=== PATIENT | female | born 1960 | race Caucasian/White ===

== ENCOUNTER → 2017-01-24 | Outpatient (CLI) | payer OTHER ==
[~2017-01-24] MED LIST: LEVO75 PO; LEVO88TA4 PO; LORA-192 PO; OMEG-53 PO; SULF1TAB42 PO; TRAZ-144 PO
[2017-01-24 14:19] LABS: EOSINOPHILS % (AUTO) 1.4 % (1.0-6.0); HEMOGLOBIN 13.9 g/dL (12.0-16.0); LYMPHOCYTES # (AUTO) 3.2 K/uL (1.0-4.8); LYMPHOCYTES % (AUTO) 47.4 % (22.0-44.0); MEAN CORPUSCULAR HEMOGLOBIN 30.1 pg (26.0-34.0); MEAN CORPUSCULAR VOLUME 89 fL (80-100); MONOCYTES # (AUTO) 0.5 K/uL (0.1-1.0); MONOCYTES % (AUTO) 7.5 % (2.0-9.0); NEUTROPHILS # (AUTO) 2.9 K/uL (1.8-7.7); NEUTROPHILS % (AUTO) 42.7 % (40.0-70.0); PLATELET COUNT (AUTO) 278 K/uL (150-450); RED BLOOD CELL COUNT(AUTO) 4.63 MIL/uL (4.00-5.20); RED CELL DISTRIBUTION WIDTH 12.7 % (11.5-14.5); WHITE BLOOD COUNT (AUTO) 6.8 K/uL (4.5-11.0)
[2017-01-24 14:31] LABS: APPEARANCE,URINE CLEAR (CLEAR); GLUCOSE, URINE (UA) NEGATIVE (NEGATIVE); KETONES,URINE NEGATIVE (NEGATIVE); LEUKOCYTE ESTERASE ,URINE NEGATIVE (NEGATIVE); OCCULT BLOOD,URINE SMALL (NEGATIVE); PH,URINE 6.5 (5.0-8.0); PROTEIN,URINE NEGATIVE (NEGATIVE)
[2017-01-24 14:36] LABS: ADD UA MICROSCOPIC YES
[2017-01-24 14:41] LABS: ALANINE AMINOTRANSFERASE 53 U/L (12-78); ANION GAP 8 mmol/L (8-16); ASPARTATE AMINOTRANSFERASE 41 U/L (15-37); BILIRUBIN,TOTAL 0.5 mg/dL (0.1-1.0); CALCIUM, TOTAL 8.9 mg/dL (8.8-10.5); CARBON DIOXIDE 27 mmol/L (22-29); CHLORIDE 98 mmol/L (98-107); CHOL/HDL RATIO 5.7 (3.9-5.7); CREATININE 0.68 mg/dL (0.60-1.30); GLOMERULAR FILTR. RATE CALC > 60 mL/min (>60); POTASSIUM 3.7 mmol/L (3.5-5.1); SODIUM SERUM 133 mmol/L (136-145); THYROID STIMULATING HORMONE 1.25 uIU/mL (0.36-3.74); TOTAL PROTEIN, SERUM 8.5 g/dL (6.4-8.2); UREA NITROGEN, BLOOD 11 mg/dL (7-18)
[2017-01-24 14:48] LABS: RBC,URINE 0-2 /HPF (0-2); SQUAMOUS EPITHELIAL CELL,UR Few /LPF (None Seen); WBC,URINE 0-2 /HPF (0-5)
== END | disposition home or self-care (01) ==
LOC: LABPV 01-23 12:12
PROVIDERS: ATTEND Nurse Practitioner Family
DX: E03.9 Hypothyroidism, unspecified (principal); E78.2 Mixed hyperlipidemia; E55.9 Vitamin D deficiency, unspecified
CPT/HCPCS: 82306; 83036; 84439; 84443

== ENCOUNTER 2017-10-22 10:47 | Day surgery (SDC) | payer OTHER ==
[~2017-10-22] VITALS: Ht 152.4 cm; Wt 56.8 kg
[~2017-10-22 10:47] MED LIST changes: +DICLOFENAC SODIUM 0.1% 2.5 ML OPHTHALMIC SOLUTION OD ONE; +DICLOFENAC SODIUM 0.1% 2.5 ML OPHTHALMIC SOLUTION ONE; -LORA-192 PO; +MELATONIN PO; +MOXIFLOXACIN HCL 0.5% 3 ML OPHTHALMIC SOLUTION OD ONE; +MOXIFLOXACIN HCL 0.5% 3 ML OPHTHALMIC SOLUTION ONE; +NATURAL TEARS OU; +PHENYLEPHRINE HCL 2.5% 2 ML OPHTHALMIC SOLUTION ONE; +RINGERS SOLUTION,LACTATED 500 ML IV ONE; -SULF1TAB42 PO; -TRAZ-144 PO; +TROPICAMIDE 1% 2 ML OPHTHALMIC SOLUTION ONE
[2017-10-22] MEDS ORDERED: TETRACAINE HCL VISCOUS 0.5% 5 ML OPHTHALMIC SOLUTION OS ONE (10:48)
[2017-10-22] MEDS ORDERED: DEXAMETHASONE SOD PHOS 4 MG/ML VIAL IVP ONE (10:48)
[2017-10-22] MEDS ORDERED: MIDAZOLAM HCL 2 MG/2 ML VIAL IVP ONE (10:48)
[2017-10-22] MEDS ORDERED: LIDOCAINE HCL/PF 1% 2 ML VIAL INJ ONE (10:48)
[2017-10-22] MEDS ORDERED: BALANCED SALT 15 ML OPHTHALMIC IRRIG.SOLN OS ONE (10:48)
[2017-10-22] MEDS ORDERED: FentaNYL CITRATE-PF 100 MCG/2 ML VIAL IVP ONE (10:48)
[2017-10-22] MEDS ORDERED: HYALURONATE SOD/CHONDROITIN SOD 0.5 ML VIAL IO ONE (10:48)
[2017-10-22] MEDS ORDERED: HYALURONATE SODIUM 12 MG/ML 0.8 ML SYRINGE IO ONE (10:48)
[2017-10-22] MEDS ORDERED: MitoMYcin 0.2 MG/VIAL KIT FOR OPHTHALMIC USE OD ONE (11:45)
== END 2017-10-22 13:00 | disposition home or self-care (01) ==
LOC: SURGERY 10:47
PROVIDERS: ATTEND Specialist
DX: H11.001 Unspecified pterygium of right eye (principal); E03.9 Hypothyroidism, unspecified; E78.00 Pure hypercholesterolemia, unspecified; Z72.89 Other problems related to lifestyle; Z98.890 Other specified postprocedural states; Z79.899 Other long term (current) drug therapy
CPT/HCPCS: 65426; 88304; 93005; C1768; J1100; J2250; J3010; J3490 ×2; J7120

== ENCOUNTER → 2018-01-09 | Outpatient (CLI) | payer OTHER ==
[~2018-01-09] MED LIST changes: -DICLOFENAC SODIUM 0.1% 2.5 ML OPHTHALMIC SOLUTION OD ONE; -DICLOFENAC SODIUM 0.1% 2.5 ML OPHTHALMIC SOLUTION ONE; -MOXIFLOXACIN HCL 0.5% 3 ML OPHTHALMIC SOLUTION OD ONE; -MOXIFLOXACIN HCL 0.5% 3 ML OPHTHALMIC SOLUTION ONE; -PHENYLEPHRINE HCL 2.5% 2 ML OPHTHALMIC SOLUTION ONE; -RINGERS SOLUTION,LACTATED 500 ML IV ONE; -TROPICAMIDE 1% 2 ML OPHTHALMIC SOLUTION ONE
[2018-01-09 12:42] LABS: BASOPHILS % (AUTO) 1.3 % (0.0-2.0); EOSINOPHILS % (AUTO) 1.8 % (1.0-6.0); HEMATOCRIT 40.2 % (36-46); HEMOGLOBIN 14.4 g/dL (12.0-16.0); LYMPHOCYTES # (AUTO) 3.3 K/uL (1.0-4.8); LYMPHOCYTES % (AUTO) 45.8 % (22.0-44.0); MEAN CORPUSCULAR HEMOGLOBIN 30.7 pg (26.0-34.0); MEAN CORPUSCULAR HGB CONC 35.8 G/dL (31.0-37.0); MEAN CORPUSCULAR VOLUME 86 fL (80-100); MONOCYTES # (AUTO) 0.5 K/uL (0.1-1.0); MONOCYTES % (AUTO) 7.5 % (2.0-9.0); NEUTROPHILS # (AUTO) 3.2 K/uL (1.8-7.7); NEUTROPHILS % (AUTO) 43.6 % (40.0-70.0); PLATELET COUNT (AUTO) 278 K/uL (150-450); RED BLOOD CELL COUNT(AUTO) 4.69 MIL/uL (4.00-5.20); RED CELL DISTRIBUTION WIDTH 12.3 % (11.5-14.5)
[2018-01-09 12:52] LABS: HEMOGLOBIN A1C 6.3 % (4.5-6.2)
[2018-01-09 13:00] LABS: ALANINE AMINOTRANSFERASE 40 U/L (12-78); ALKALINE PHOSPHATASE 92 U/L (46-116); ANION GAP 10 mmol/L (8-16); ASPARTATE AMINOTRANSFERASE 32 U/L (15-37); BILIRUBIN,TOTAL 0.5 mg/dL (0.1-1.0); CALCIUM, TOTAL 8.7 mg/dL (8.8-10.5); CARBON DIOXIDE 25 mmol/L (22-29); CHLORIDE 98 mmol/L (98-107); CHOL/HDL RATIO 6.1 (3.9-5.7); CHOLESTEROL 249 mg/dL (131-200); CREATININE 0.65 mg/dL (0.60-1.30); GLOMERULAR FILTR. RATE CALC > 60 mL/min (>60); GLUCOSE,RANDOM 91 mg/dL (70-110); HDL CHOLESTEROL 41 mg/dL (40-60); LDL CHOL (CALC.) 158 mg/dL (0-130); POTASSIUM 3.9 mmol/L (3.5-5.1); SODIUM SERUM 133 mmol/L (136-145); THYROID STIMULATING HORMONE 2.42 uIU/mL (0.36-3.74); TOTAL PROTEIN, SERUM 8.8 g/dL (6.4-8.2); TRIGLYCERIDES 250 mg/dL (15-150); UREA NITROGEN, BLOOD 13 mg/dL (7-18)
[2018-01-09 13:28] LABS: APPEARANCE,URINE CLEAR (CLEAR)
[2018-01-09 13:29] LABS: PH,URINE 5.5 (5.0-8.0); PROTEIN,URINE NEGATIVE (NEGATIVE)
[2018-01-09 13:34] LABS: BILIRUBIN,URINE NEGATIVE (NEGATIVE); GLUCOSE, URINE (UA) NEGATIVE (NEGATIVE); KETONES,URINE NEGATIVE (NEGATIVE); LEUKOCYTE ESTERASE ,URINE NEGATIVE (NEGATIVE); NITRATE,URINE NEGATIVE (NEGATIVE); OCCULT BLOOD,URINE SMALL (NEGATIVE); UROBILINOGEN,URINE 0.2 mg/dL (<=1.0)
[2018-01-09 13:36] LABS: BACTERIA,URINE Rare /HPF (None Seen); RBC,URINE 0-2 /HPF (0-2); WBC,URINE 0-2 /HPF (0-5)
[2018-01-09 13:39] LABS: HYALINE CASTS, URINE 0-2 /LPF (None Seen); SQUAMOUS EPITHELIAL CELL,UR Rare /LPF (None Seen)
== END | disposition home or self-care (01) ==
LOC: LABPV 11:59
PROVIDERS: ATTEND Internal Medicine
DX: Z13.89 Encounter for screening for other disorder (principal); E78.2 Mixed hyperlipidemia; E03.9 Hypothyroidism, unspecified; E55.9 Vitamin D deficiency, unspecified
CPT/HCPCS: 83036; 84443

== ENCOUNTER → 2018-05-28 | Outpatient (CLI) | payer OTHER ==
[2018-05-28 11:42] LABS: APPEARANCE,URINE CLEAR (CLEAR); BILIRUBIN,URINE NEGATIVE (NEGATIVE); GLUCOSE, URINE (UA) NEGATIVE (NEGATIVE); KETONES,URINE NEGATIVE (NEGATIVE); LEUKOCYTE ESTERASE ,URINE NEGATIVE (NEGATIVE); NITRATE,URINE NEGATIVE (NEGATIVE); OCCULT BLOOD,URINE SMALL (NEGATIVE); PH,URINE 6.5 (5.0-8.0); PROTEIN,URINE NEGATIVE (NEGATIVE); UROBILINOGEN,URINE 0.2 mg/dL (<=1.0)
[2018-05-28 11:47] LABS: BASOPHILS % (AUTO) 1.4 % (0.0-2.0); EOSINOPHILS % (AUTO) 1.5 % (1.0-6.0); HEMATOCRIT 41.3 % (36-46); HEMOGLOBIN 14.3 g/dL (12.0-16.0); LYMPHOCYTES # (AUTO) 2.8 K/uL (1.0-4.8); LYMPHOCYTES % (AUTO) 48.5 % (22.0-44.0); MEAN CORPUSCULAR HEMOGLOBIN 30.3 pg (26.0-34.0); MEAN CORPUSCULAR HGB CONC 34.7 G/dL (31.0-37.0); MEAN CORPUSCULAR VOLUME 87 fL (80-100); MONOCYTES # (AUTO) 0.4 K/uL (0.1-1.0); MONOCYTES % (AUTO) 7.2 % (2.0-9.0); NEUTROPHILS # (AUTO) 2.4 K/uL (1.8-7.7); NEUTROPHILS % (AUTO) 41.4 % (40.0-70.0); PLATELET COUNT (AUTO) 280 K/uL (150-450); RED BLOOD CELL COUNT(AUTO) 4.74 MIL/uL (4.00-5.20); RED CELL DISTRIBUTION WIDTH 12.6 % (11.5-14.5)
[2018-05-28 11:58] LABS: BACTERIA,URINE None Seen /HPF (None Seen); WBC,URINE None Seen /HPF (0-5)
[2018-05-28 12:06] LABS: ALANINE AMINOTRANSFERASE 49 U/L (12-78); ALBUMIN 3.9 g/dL (3.4-5.0); ALKALINE PHOSPHATASE 99 U/L (46-116); ANION GAP 7 mmol/L (8-16); ASPARTATE AMINOTRANSFERASE 34 U/L (15-37); BILIRUBIN,TOTAL 0.3 mg/dL (0.1-1.0); CALCIUM, TOTAL 9.1 mg/dL (8.8-10.5); CARBON DIOXIDE 28 mmol/L (22-29); CHLORIDE 103 mmol/L (98-107); CHOL/HDL RATIO 5.5 (3.9-5.7); CHOLESTEROL 215 mg/dL (131-200); CREATININE 0.75 mg/dL (0.60-1.30); GLOMERULAR FILTR. RATE CALC > 60 mL/min (>60); GLUCOSE,RANDOM 100 mg/dL (70-110); HDL CHOLESTEROL 39 mg/dL (40-60); LDL CHOL (CALC.) 134 mg/dL (0-130); POTASSIUM 4.3 mmol/L (3.5-5.1); SODIUM SERUM 138 mmol/L (136-145); THYROID STIMULATING HORMONE 2.35 uIU/mL (0.36-3.74); TOTAL PROTEIN, SERUM 8.7 g/dL (6.4-8.2); TRIGLYCERIDES 209 mg/dL (15-150); UREA NITROGEN, BLOOD 9 mg/dL (7-18)
== END | disposition home or self-care (01) ==
LOC: LABPV 09:56
PROVIDERS: ATTEND Internal Medicine
DX: E03.9 Hypothyroidism, unspecified (principal); E78.2 Mixed hyperlipidemia; E55.9 Vitamin D deficiency, unspecified
CPT/HCPCS: 82306; 82652; 84439; 84443

== ENCOUNTER → 2018-09-18 | Outpatient (CLI) | payer OTHER ==
[2018-09-18 11:30] LABS: APPEARANCE,URINE CLEAR (CLEAR); BILIRUBIN,URINE NEGATIVE (NEGATIVE); GLUCOSE, URINE (UA) NEGATIVE (NEGATIVE); KETONES,URINE NEGATIVE (NEGATIVE); LEUKOCYTE ESTERASE ,URINE NEGATIVE (NEGATIVE); NITRATE,URINE NEGATIVE (NEGATIVE); OCCULT BLOOD,URINE SMALL (NEGATIVE); PH,URINE 7.5 (5.0-8.0); PROTEIN,URINE NEGATIVE (NEGATIVE); UROBILINOGEN,URINE 0.2 mg/dL (<=1.0)
[2018-09-18 11:40] LABS: BACTERIA,URINE Rare /HPF (None Seen); SQUAMOUS EPITHELIAL CELL,UR Rare /LPF (None Seen); WBC,URINE None Seen /HPF (0-5)
[2018-09-18 12:28] LABS: BASOPHILS % (AUTO) 1.5 % (0.0-2.0); EOSINOPHILS % (AUTO) 1.4 % (1.0-6.0); HEMATOCRIT 42.8 % (36-46); HEMOGLOBIN 14.4 g/dL (12.0-16.0); LYMPHOCYTES # (AUTO) 2.3 K/uL (1.0-4.8); LYMPHOCYTES % (AUTO) 48.5 % (22.0-44.0); MEAN CORPUSCULAR HEMOGLOBIN 29.3 pg (26.0-34.0); MEAN CORPUSCULAR HGB CONC 33.7 G/dL (31.0-37.0); MEAN CORPUSCULAR VOLUME 87 fL (80-100); MONOCYTES # (AUTO) 0.4 K/uL (0.1-1.0); MONOCYTES % (AUTO) 7.9 % (2.0-9.0); NEUTROPHILS % (AUTO) 40.7 % (40.0-70.0); PLATELET COUNT (AUTO) 295 K/uL (150-450); RED BLOOD CELL COUNT(AUTO) 4.91 MIL/uL (4.00-5.20); RED CELL DISTRIBUTION WIDTH 12.5 % (11.5-14.5)
[2018-09-18 13:11] LABS: ALANINE AMINOTRANSFERASE 38 U/L (12-78); ALKALINE PHOSPHATASE 99 U/L (46-116); ANION GAP 10 mmol/L (8-16); ASPARTATE AMINOTRANSFERASE 29 U/L (15-37); BILIRUBIN,TOTAL 0.4 mg/dL (0.1-1.0); CALCIUM, TOTAL 9.6 mg/dL (8.8-10.5); CARBON DIOXIDE 26 mmol/L (22-29); CHLORIDE 102 mmol/L (98-107); CREATININE 0.45 mg/dL (0.60-1.30); GLOMERULAR FILTR. RATE CALC > 60 mL/min (>60); GLUCOSE,RANDOM 93 mg/dL (70-110); POTASSIUM 3.6 mmol/L (3.5-5.1); SODIUM SERUM 138 mmol/L (136-145); UREA NITROGEN, BLOOD 13 mg/dL (7-18)
[2018-09-18 13:12] LABS: ALBUMIN 3.9 g/dL (3.4-5.0); C-REACTIVE PROTEIN QUANT 0.31 mg/dL (0.00-0.30); CHOL/HDL RATIO 5.1 (3.9-5.7); CHOLESTEROL 225 mg/dL (131-200); CREATINE KINASE, TOTAL ONLY 109 U/L (26-192); FREE T4 (FREE THYROXINE) 1.11 ng/dL (0.76-1.46); HDL CHOLESTEROL 44 mg/dL (40-60); LDL CHOL (CALC.) 138 mg/dL (0-130); THYROID STIMULATING HORMONE 2.08 uIU/mL (0.36-3.74); TOTAL PROTEIN, SERUM 8.9 g/dL (6.4-8.2); TRIGLYCERIDES 213 mg/dL (15-150)
[2018-09-18 13:48] LABS: ERYTHROCYTE SEDIMENTATION RATE 52 MM/HR (0-20)
[2018-09-18 17:20] LABS: RAPID PLASMA REAGIN NONREACTIVE (NONREACTIVE)
== END | disposition home or self-care (01) ==
LOC: LABPV 10:44
PROVIDERS: ATTEND Physician Assistant
DX: Z13.89 Encounter for screening for other disorder (principal); M13.0 Polyarthritis, unspecified; E78.00 Pure hypercholesterolemia, unspecified; E03.9 Hypothyroidism, unspecified
CPT/HCPCS: 82306; 84439; 84443; 85651; 86038; 86140; 86200; 86430; 86592

== ENCOUNTER → 2019-02-03 | Outpatient (CLI) | payer OTHER ==
[2019-02-03 12:32] LABS: CREATININE,URINE RANDOM 21.6 mg/dL (30.0-125.0)
[2019-02-03 12:37] LABS: PROTEIN,URINE RANDOM < 6 mg/dL (0-11.9)
== END | disposition home or self-care (01) ==
LOC: LABMN 10:42
PROVIDERS: ATTEND Internal Medicine Rheumatology
DX: M35.00 Sjogren syndrome, unspecified (principal); R94.5 Abnormal results of liver function studies
CPT/HCPCS: 80074; 82570; 84156; 86038; 86200; 86225; 86235; 86256; 86430

== ENCOUNTER → 2019-04-01 | Outpatient (CLI) | payer OTHER ==
[2019-04-01 12:43] LABS: CREATININE 0.64 mg/dL (0.60-1.30); GLOMERULAR FILTR. RATE CALC > 60 mL/min (>60)
[2019-04-01 12:57] LABS: UREA NITROGEN, BLOOD 9 mg/dL (7-18)
== END | disposition home or self-care (01) ==
LOC: LABMN 12:09
DX: R31.29 Other microscopic hematuria (principal); M35.00 Sjogren syndrome, unspecified; E78.2 Mixed hyperlipidemia; E55.9 Vitamin D deficiency, unspecified; E03.9 Hypothyroidism, unspecified
CPT/HCPCS: 82565; 84520

== ENCOUNTER 2019-06-29 13:43 | Emergency (ER) | payer OTHER ==
[~2019-06-29] VITALS: Ht 152.4 cm; Wt 54.5 kg
[2019-06-29] MEDS ORDERED: PILOC5 PO (13:48)
[2019-06-29 16:02] LABS: APPEARANCE,URINE CLEAR (CLEAR); BILIRUBIN,URINE NEGATIVE (NEGATIVE); GLUCOSE, URINE (UA) NEGATIVE (NEGATIVE); KETONES,URINE NEGATIVE (NEGATIVE); LEUKOCYTE ESTERASE ,URINE NEGATIVE (NEGATIVE); NITRATE,URINE NEGATIVE (NEGATIVE); OCCULT BLOOD,URINE MODERATE (NEGATIVE); PH,URINE 7.5 (5.0-8.0); PROTEIN,URINE NEGATIVE (NEGATIVE); UROBILINOGEN,URINE 0.2 mg/dL (<=1.0)
[2019-06-29 16:08] LABS: BACTERIA,URINE None Seen /HPF (None Seen); RBC,URINE 0-2 /HPF (0-2); SQUAMOUS EPITHELIAL CELL,UR Rare /LPF (None Seen); WBC,URINE 0-2 /HPF (0-5)
[2019-06-29 16:31] LABS: BASOPHILS % (AUTO) 1.8 % (0.0-2.0); EOSINOPHILS % (AUTO) 1.5 % (1.0-6.0); HEMATOCRIT 40.9 % (36-46); LYMPHOCYTES # (AUTO) 2.4 K/uL (1.0-4.8); LYMPHOCYTES % (AUTO) 51.1 % (22.0-44.0); MEAN CORPUSCULAR HEMOGLOBIN 29.8 pg (26.0-34.0); MEAN CORPUSCULAR HGB CONC 34.2 G/dL (31.0-37.0); MEAN CORPUSCULAR VOLUME 87 fL (80-100); MONOCYTES # (AUTO) 0.4 K/uL (0.1-1.0); MONOCYTES % (AUTO) 9.2 % (2.0-9.0); NEUTROPHILS # (AUTO) 1.7 K/uL (1.8-7.7); NEUTROPHILS % (AUTO) 36.4 % (40.0-70.0); PLATELET COUNT (AUTO) 319 K/uL (150-450); RED CELL DISTRIBUTION WIDTH 12.9 % (11.5-14.5)
[2019-06-29 16:51] LABS: ANION GAP 8 mmol/L (8-16); CALCIUM, TOTAL 9.1 mg/dL (8.8-10.5); CARBON DIOXIDE 28 mmol/L (22-29); CHLORIDE 103 mmol/L (98-107); CREATININE 0.63 mg/dL (0.60-1.30); GLOMERULAR FILTR. RATE CALC > 60 mL/min (>60); GLUCOSE,RANDOM 97 mg/dL (70-110); POTASSIUM 3.5 mmol/L (3.5-5.1); SODIUM SERUM 139 mmol/L (136-145); UREA NITROGEN, BLOOD 10 mg/dL (7-18)
[2019-06-29 16:57] LABS: ALANINE AMINOTRANSFERASE 22 U/L (12-78); ALKALINE PHOSPHATASE 97 U/L (46-116); ASPARTATE AMINOTRANSFERASE 22 U/L (15-37); BILIRUBIN,TOTAL 0.3 mg/dL (0.1-1.0); TOTAL PROTEIN, SERUM 8.8 g/dL (6.4-8.2)
[2019-06-29 17:00] LABS: INR 0.9 (0.9-1.1); PROTHROMBIN TIME 9.6 SEC (9.4-11.6)
[2019-06-29] MEDS ORDERED: SODIUM CHLORIDE 0.9% 1,000 ML IV ONE (17:00)
[2019-06-29] MEDS ORDERED: LORazepam 1 MG TABLET PO ONE (17:30)
[2019-06-29] MEDS ORDERED: HYPR15DR23 OU (18:26)
[2019-06-29 18:55] VITALS: BP 159/102
== END 2019-06-29 19:05 | disposition home or self-care (01) ==
LOC: EMS 13:51
DX: F41.1 Generalized anxiety disorder (principal); F43.0 Acute stress reaction; R51 Headache; R42 Dizziness and giddiness
CPT/HCPCS: 36415; 70450; 80053; 81001; 82962; 84484; 85025; 85610; 85730; 93005; 96360; 99285; J7030

== ENCOUNTER → 2020-01-28 | Outpatient (CLI) | payer OTHER ==
[~2020-01-28] MED LIST changes: +HYPR15DR23 OU; -LEVO88TA4 PO; -NATURAL TEARS OU; +PILOC5 PO
[2020-01-28 13:38] LABS: BASOPHILS % (AUTO) 1.5 % (0.0-2.0); EOSINOPHILS % (AUTO) 1.8 % (1.0-6.0); HEMATOCRIT 42.9 % (36-46); HEMOGLOBIN 14.3 g/dL (12.0-16.0); LYMPHOCYTES # (AUTO) 2.4 K/uL (1.0-4.8); LYMPHOCYTES % (AUTO) 45.3 % (22.0-44.0); MEAN CORPUSCULAR HEMOGLOBIN 29.3 pg (26.0-34.0); MEAN CORPUSCULAR HGB CONC 33.4 G/dL (31.0-37.0); MEAN CORPUSCULAR VOLUME 88 fL (80-100); MONOCYTES # (AUTO) 0.5 K/uL (0.1-1.0); MONOCYTES % (AUTO) 8.9 % (2.0-9.0); NEUTROPHILS # (AUTO) 2.3 K/uL (1.8-7.7); NEUTROPHILS % (AUTO) 42.5 % (40.0-70.0); PLATELET COUNT (AUTO) 285 K/uL (150-450); RED BLOOD CELL COUNT(AUTO) 4.89 MIL/uL (4.00-5.20); RED CELL DISTRIBUTION WIDTH 12.8 % (11.5-14.5)
[2020-01-28 14:01] LABS: ALANINE AMINOTRANSFERASE 27 U/L (12-78); ALBUMIN 4.5 g/dL (3.4-5.0); ALKALINE PHOSPHATASE 93 U/L (46-116); ANION GAP 11 mmol/L (8-16); ASPARTATE AMINOTRANSFERASE 24 U/L (15-37); BILIRUBIN,TOTAL 0.6 mg/dL (0.1-1.0); CALCIUM, TOTAL 9.1 mg/dL (8.8-10.5); CARBON DIOXIDE 26 mmol/L (22-29); CHLORIDE 100 mmol/L (98-107); CHOL/HDL RATIO 4.3 (3.9-5.7); CHOLESTEROL 251 mg/dL (131-200); CREATININE 0.67 mg/dL (0.60-1.30); GLOMERULAR FILTR. RATE CALC > 60 mL/min (>60); GLUCOSE,RANDOM 92 mg/dL (70-110); HDL CHOLESTEROL 59 mg/dL (40-60); LDL CHOL (CALC.) 159 mg/dL (0-130); POTASSIUM 3.5 mmol/L (3.5-5.1); SODIUM SERUM 137 mmol/L (136-145); THYROID STIMULATING HORMONE 1.19 uIU/mL (0.36-3.74); TOTAL PROTEIN, SERUM 9.4 g/dL (6.4-8.2); TRIGLYCERIDES 165 mg/dL (15-150); UREA NITROGEN, BLOOD 12 mg/dL (7-18)
[2020-01-28 14:44] LABS: ERYTHROCYTE SEDIMENTATION RATE 40 MM/HR (0-20)
[2020-01-28 14:47] LABS: APPEARANCE,URINE CLEAR (CLEAR); BILIRUBIN,URINE NEGATIVE (NEGATIVE); GLUCOSE, URINE (UA) NEGATIVE (NEGATIVE); KETONES,URINE NEGATIVE (NEGATIVE); LEUKOCYTE ESTERASE ,URINE TRACE (NEGATIVE); NITRATE,URINE NEGATIVE (NEGATIVE); PH,URINE 6.5 (5.0-8.0); PROTEIN,URINE NEGATIVE (NEGATIVE); UROBILINOGEN,URINE 0.2 mg/dL (<=1.0)
[2020-01-28 14:52] LABS: OCCULT BLOOD,URINE TRACE (NEGATIVE)
[2020-01-28 14:53] LABS: BACTERIA,URINE None Seen /HPF (None Seen); RBC,URINE 0-2 /HPF (0-2); SQUAMOUS EPITHELIAL CELL,UR Rare /LPF (None Seen); WBC,URINE 0-2 /HPF (0-5)
== END | disposition home or self-care (01) ==
LOC: LABMN 12:37
PROVIDERS: ATTEND Physician Assistant
DX: E03.9 Hypothyroidism, unspecified (principal); N02.9 Recurrent and persistent hematuria with unspecified morphologic changes; E78.2 Mixed hyperlipidemia; M85.851 Other specified disorders of bone density and structure, right thigh
CPT/HCPCS: 82306; 84443; 85651; 86038; 86225

== ENCOUNTER → 2020-03-24 | Outpatient (CLI) | payer OTHER | END | disposition home or self-care (01) | LOC: LABPV 11:50 | PROVIDERS: ATTEND Internal Medicine Rheumatology | DX: M35.00 Sjogren syndrome, unspecified (principal) | CPT/HCPCS: 86235 ==

== ENCOUNTER 2020-11-09 19:26 | Emergency (ER) | payer OTHER ==
[~2020-11-09] VITALS: Ht 165.1 cm; Wt 59.1 kg
[2020-11-09] MEDS ORDERED: LEVO88TA4 PO (19:39)
[2020-11-09] MEDS ORDERED: KETOROLAC TROMETHAMINE 60 MG/2 ML VIAL IM ONE (20:30)
[2020-11-09 21:09] VITALS: BP 157/82
== END 2020-11-09 21:10 | disposition home or self-care (01) ==
LOC: EMS 19:28
DX: S39.012A Strain of muscle, fascia and tendon of lower back, initial encounter (principal); E78.00 Pure hypercholesterolemia, unspecified; X58.XXXA Exposure to other specified factors, initial encounter; Y93.89 Activity, other specified; Y92.89 Other specified places as the place of occurrence of the external cause; Y99.8 Other external cause status
CPT/HCPCS: 96372; 99283; J1885

== ENCOUNTER → 2020-11-30 | Outpatient (CLI) | payer OTHER ==
[~2020-11-30] MED LIST changes: -HYPR15DR23 OU; +LEVO88TA4 PO; -MELATONIN PO
[2020-11-30 13:11] LABS: EOSINOPHILS % (AUTO) 1.8 % (1.0-6.0); HEMOGLOBIN 13.9 g/dL (12.0-16.0); LYMPHOCYTES # (AUTO) 2.6 K/uL (1.0-4.8); LYMPHOCYTES % (AUTO) 47.1 % (22.0-44.0); MEAN CORPUSCULAR HEMOGLOBIN 29.4 pg (26.0-34.0); MEAN CORPUSCULAR HGB CONC 33.9 G/dL (31.0-37.0); MEAN CORPUSCULAR VOLUME 87 fL (80-100); MONOCYTES # (AUTO) 0.5 K/uL (0.1-1.0); MONOCYTES % (AUTO) 8.7 % (2.0-9.0); NEUTROPHILS # (AUTO) 2.3 K/uL (1.8-7.7); NEUTROPHILS % (AUTO) 41.4 % (40.0-70.0); PLATELET COUNT (AUTO) 263 K/uL (150-450); RED BLOOD CELL COUNT(AUTO) 4.73 MIL/uL (4.00-5.20); RED CELL DISTRIBUTION WIDTH 13.1 % (11.5-14.5)
[2020-11-30 13:14] LABS: APPEARANCE,URINE CLEAR (CLEAR); BILIRUBIN,URINE NEGATIVE (NEGATIVE); GLUCOSE, URINE (UA) NEGATIVE (NEGATIVE); KETONES,URINE NEGATIVE (NEGATIVE); LEUKOCYTE ESTERASE ,URINE NEGATIVE (NEGATIVE); NITRATE,URINE NEGATIVE (NEGATIVE); OCCULT BLOOD,URINE SMALL (NEGATIVE); PH,URINE 6.5 (5.0-8.0); PROTEIN,URINE NEGATIVE (NEGATIVE); UROBILINOGEN,URINE 0.2 mg/dL (<=1.0)
[2020-11-30 13:19] LABS: HEMOGLOBIN A1C 5.9 % (3.8-5.6)
[2020-11-30 13:38] LABS: ALANINE AMINOTRANSFERASE 31 U/L (12-78); ALKALINE PHOSPHATASE 93 U/L (46-116); ANION GAP 2 mmol/L (8-16); ASPARTATE AMINOTRANSFERASE 24 U/L (15-37); BILIRUBIN,TOTAL 0.5 mg/dL (0.1-1.0); CALCIUM, TOTAL 9.1 mg/dL (8.8-10.5); CARBON DIOXIDE 27 mmol/L (22-29); CHLORIDE 102 mmol/L (98-107); CHOL/HDL RATIO 4.8 (3.9-5.7); CHOLESTEROL 245 mg/dL (131-200); CREATININE 0.55 mg/dL (0.60-1.30); GLOMERULAR FILTR. RATE CALC > 60 mL/min (>60); GLUCOSE,RANDOM 90 mg/dL (70-110); HDL CHOLESTEROL 51 mg/dL (40-60); LDL CHOL (CALC.) 160 mg/dL (0-130); POTASSIUM 4.2 mmol/L (3.5-5.1); SODIUM SERUM 131 mmol/L (136-145); THYROID STIMULATING HORMONE 2.02 uIU/mL (0.36-3.74); TOTAL PROTEIN, SERUM 8.8 g/dL (6.4-8.2); TRIGLYCERIDES 168 mg/dL (15-150); UREA NITROGEN, BLOOD 12 mg/dL (7-18)
[2020-11-30 14:08] LABS: BACTERIA,URINE None Seen /HPF (None Seen); RBC,URINE 0-2 /HPF (0-2); SQUAMOUS EPITHELIAL CELL,UR None Seen /LPF (None Seen); WBC,URINE 0-2 /HPF (0-5)
== END | disposition home or self-care (01) ==
LOC: LABMN 12:12
PROVIDERS: ATTEND Physician Assistant
DX: Z00.00 Encounter for general adult medical examination without abnormal findings (principal); E03.9 Hypothyroidism, unspecified; E78.2 Mixed hyperlipidemia
CPT/HCPCS: 82043; 82570; 83036; 84443

== ENCOUNTER → 2021-06-01 | Outpatient (CLI) | payer OTHER | END | disposition home or self-care (01) | LOC: RADMN 12:31 | PROVIDERS: ATTEND Internal Medicine | DX: M47.812 Spondylosis without myelopathy or radiculopathy, cervical region (principal); M47.813 Spondylosis without myelopathy or radiculopathy, cervicothoracic region; M48.02 Spinal stenosis, cervical region; M25.78 Osteophyte, vertebrae; M43.12 Spondylolisthesis, cervical region | CPT/HCPCS: 72040; 72141 ==

== ENCOUNTER → 2021-09-27 | Outpatient (CLI) | payer OTHER ==
[2021-09-27 10:58] LABS: BASOPHILS % (AUTO) 1.3 % (0.0-2.0); EOSINOPHILS % (AUTO) 1.1 % (1.0-6.0); HEMATOCRIT 39.5 % (36-46); HEMOGLOBIN 13.4 g/dL (12.0-16.0); LYMPHOCYTES # (AUTO) 2.1 K/uL (1.0-4.8); LYMPHOCYTES % (AUTO) 36.4 % (22.0-44.0); MEAN CORPUSCULAR HEMOGLOBIN 29.2 pg (26.0-34.0); MEAN CORPUSCULAR HGB CONC 33.8 G/dL (31.0-37.0); MEAN CORPUSCULAR VOLUME 86 fL (80-100); MONOCYTES # (AUTO) 0.4 K/uL (0.1-1.0); MONOCYTES % (AUTO) 6.2 % (2.0-9.0); NEUTROPHILS # (AUTO) 3.1 K/uL (1.8-7.7); PLATELET COUNT (AUTO) 314 K/uL (150-450); RED BLOOD CELL COUNT(AUTO) 4.57 MIL/uL (4.00-5.20); RED CELL DISTRIBUTION WIDTH 12.7 % (11.5-14.5)
[2021-09-27 11:22] LABS: HEMOGLOBIN A1C 5.9 % (3.8-5.6)
[2021-09-27 11:27] LABS: ALANINE AMINOTRANSFERASE 26 U/L (12-78); ALKALINE PHOSPHATASE 90 U/L (46-116); ANION GAP 8 mmol/L (8-16); ASPARTATE AMINOTRANSFERASE 22 U/L (15-37); BILIRUBIN,TOTAL 0.3 mg/dL (0.1-1.0); CARBON DIOXIDE 28 mmol/L (22-29); CHLORIDE 104 mmol/L (98-107); CHOLESTEROL 203 mg/dL (131-200); CREATININE 0.55 mg/dL (0.60-1.30); GLUCOSE,RANDOM 104 mg/dL (70-110); HDL CHOLESTEROL 51 mg/dL (40-60); LDL CHOL (CALC.) 131 mg/dL (0-130); POTASSIUM 3.9 mmol/L (3.5-5.1); SODIUM SERUM 140 mmol/L (136-145); THYROID STIMULATING HORMONE 1.75 uIU/mL (0.36-3.74); TOTAL PROTEIN, SERUM 8.9 g/dL (6.4-8.2); TRIGLYCERIDES 104 mg/dL (15-150); UREA NITROGEN, BLOOD 17 mg/dL (7-18)
[2021-09-27 11:28] LABS: GLOMERULAR FILTR. RATE CALC > 60 mL/min (>60)
[2021-09-27 11:53] LABS: APPEARANCE,URINE CLEAR (CLEAR); BILIRUBIN,URINE NEGATIVE (NEGATIVE); GLUCOSE, URINE (UA) NEGATIVE (NEGATIVE); KETONES,URINE NEGATIVE (NEGATIVE); NITRATE,URINE NEGATIVE (NEGATIVE); PROTEIN,URINE NEGATIVE (NEGATIVE); UROBILINOGEN,URINE 0.2 mg/dL (<=1.0)
[2021-09-27 12:36] LABS: LEUKOCYTE ESTERASE ,URINE SMALL (NEGATIVE); OCCULT BLOOD,URINE SMALL (NEGATIVE)
[2021-09-27 12:37] LABS: BACTERIA,URINE Few /HPF (None Seen); SQUAMOUS EPITHELIAL CELL,UR Few /LPF (None Seen)
== END | disposition home or self-care (01) ==
LOC: LABMN 10:33
PROVIDERS: ATTEND Internal Medicine
DX: E78.2 Mixed hyperlipidemia (principal); E03.9 Hypothyroidism, unspecified; R73.03 Prediabetes; Z00.00 Encounter for general adult medical examination without abnormal findings
CPT/HCPCS: 80053; 80061; 81001; 82043; 82570; 83036; 84443; 85025; 86038; 86430; 36415-L1; 36415-TC

== ENCOUNTER → 2022-01-31 | Outpatient (CLI) | payer OTHER | END | disposition home or self-care (01) | LOC: RADMN 16:08 | PROVIDERS: ATTEND Internal Medicine | DX: M16.12 Unilateral primary osteoarthritis, left hip (principal); M85.88 Other specified disorders of bone density and structure, other site; M19.071 Primary osteoarthritis, right ankle and foot; M77.31 Calcaneal spur, right foot; M25.552 Pain in left hip; M79.671 Pain in right foot | CPT/HCPCS: 73503 ==

== ENCOUNTER → 2022-04-26 | Outpatient (CLI) | payer OTHER ==
[2022-04-26 11:42] LABS: BASOPHILS % (AUTO) 1.1 % (0.0-2.0); HEMATOCRIT 39.4 % (36-46); HEMOGLOBIN 13.2 g/dL (12.0-16.0); LYMPHOCYTES # (AUTO) 2.2 K/uL (1.0-4.8); LYMPHOCYTES % (AUTO) 38.6 % (22.0-44.0); MEAN CORPUSCULAR HEMOGLOBIN 29.2 pg (26.0-34.0); MEAN CORPUSCULAR HGB CONC 33.4 G/dL (31.0-37.0); MEAN CORPUSCULAR VOLUME 87 fL (80-100); MONOCYTES # (AUTO) 0.4 K/uL (0.1-1.0); MONOCYTES % (AUTO) 7.8 % (2.0-9.0); NEUTROPHILS # (AUTO) 2.9 K/uL (1.8-7.7); NEUTROPHILS % (AUTO) 51.5 % (40.0-70.0); PLATELET COUNT (AUTO) 260 K/uL (150-450); RED BLOOD CELL COUNT(AUTO) 4.52 MIL/uL (4.00-5.20)
[2022-04-26 12:41] LABS: ALANINE AMINOTRANSFERASE 34 U/L (12-78); ALBUMIN 3.8 g/dL (3.4-5.0); ALKALINE PHOSPHATASE 82 U/L (46-116); ANION GAP 9 mmol/L (8-16); ASPARTATE AMINOTRANSFERASE 29 U/L (15-37); BILIRUBIN,TOTAL 0.5 mg/dL (0.1-1.0); CARBON DIOXIDE 26 mmol/L (22-29); CHLORIDE 99 mmol/L (98-107); CHOL/HDL RATIO 3.2 (3.9-5.7); CHOLESTEROL 159 mg/dL (131-200); CREATININE 0.55 mg/dL (0.60-1.30); GLOMERULAR FILTR. RATE CALC > 60 mL/min (>60); GLUCOSE,RANDOM 86 mg/dL (70-110); HDL CHOLESTEROL 50 mg/dL (40-60); LDL CHOL (CALC.) 82 mg/dL (0-130); POTASSIUM 3.7 mmol/L (3.5-5.1); SODIUM SERUM 134 mmol/L (136-145); THYROID STIMULATING HORMONE 1.19 uIU/mL (0.36-3.74); TRIGLYCERIDES 136 mg/dL (15-150); UREA NITROGEN, BLOOD 13 mg/dL (7-18)
[2022-04-26 14:33] LABS: APPEARANCE,URINE CLEAR (CLEAR); BILIRUBIN,URINE NEGATIVE (NEGATIVE); GLUCOSE, URINE (UA) NEGATIVE (NEGATIVE); KETONES,URINE NEGATIVE (NEGATIVE); LEUKOCYTE ESTERASE ,URINE NEGATIVE (NEGATIVE); NITRATE,URINE NEGATIVE (NEGATIVE); OCCULT BLOOD,URINE SMALL (NEGATIVE); PROTEIN,URINE NEGATIVE (NEGATIVE); SPECIFIC GRAVITIY, URINE 1.002 (1.003-1.030); UROBILINOGEN,URINE <=1.0 mg/dL (<=1.0)
[2022-04-26 14:43] LABS: BACTERIA,URINE None Seen /HPF (None Seen); RBC,URINE 0-2 /HPF (0-2); SQUAMOUS EPITHELIAL CELL,UR Few /LPF (None Seen); WBC,URINE None Seen /HPF (0-5)
== END | disposition home or self-care (01) ==
LOC: LABMN 10:40
PROVIDERS: ATTEND Internal Medicine
DX: R73.03 Prediabetes (principal); E78.2 Mixed hyperlipidemia; E03.9 Hypothyroidism, unspecified
CPT/HCPCS: 80053; 80061; 81001; 82043; 82570; 83036; 84443; 85025

== ENCOUNTER → 2022-08-14 | Outpatient (CLI) | payer OTHER | END | disposition home or self-care (01) | LOC: RADMN 12:38 | PROVIDERS: ATTEND Orthopaedic Surgery | DX: S73.192A Other sprain of left hip, initial encounter (principal); M25.852 Other specified joint disorders, left hip; M51.36 Other intervertebral disc degeneration, lumbar region; M47.817 Spondylosis without myelopathy or radiculopathy, lumbosacral region; M43.27 Fusion of spine, lumbosacral region; M25.78 Osteophyte, vertebrae; M16.0 Bilateral primary osteoarthritis of hip; M53.3 Sacrococcygeal disorders, not elsewhere classified; K59.00 Constipation, unspecified; M54.50 Low back pain, unspecified; X58.XXXA Exposure to other specified factors, initial encounter; Y93.89 Activity, other specified; Y92.89 Other specified places as the place of occurrence of the external cause; Y99.8 Other external cause status | CPT/HCPCS: 72100; 72202; 73721 ==

== ENCOUNTER → 2022-11-01 | Outpatient (CLI) | payer OTHER ==
[2022-11-01 13:09] LABS: BASOPHILS % (AUTO) 1.1 % (0.0-2.0); EOSINOPHILS % (AUTO) 1.4 % (1.0-6.0); HEMOGLOBIN 13.4 g/dL (12.0-16.0); LYMPHOCYTES # (AUTO) 2.4 K/uL (1.0-4.8); LYMPHOCYTES % (AUTO) 41.8 % (22.0-44.0); MEAN CORPUSCULAR HEMOGLOBIN 29.4 pg (26.0-34.0); MEAN CORPUSCULAR HGB CONC 33.5 G/dL (31.0-37.0); MEAN CORPUSCULAR VOLUME 88 fL (80-100); MONOCYTES # (AUTO) 0.5 K/uL (0.1-1.0); MONOCYTES % (AUTO) 9.1 % (2.0-9.0); NEUTROPHILS # (AUTO) 2.7 K/uL (1.8-7.7); NEUTROPHILS % (AUTO) 46.6 % (40.0-70.0); PLATELET COUNT (AUTO) 297 K/uL (150-450); RED BLOOD CELL COUNT(AUTO) 4.56 MIL/uL (4.00-5.20); RED CELL DISTRIBUTION WIDTH 13.1 % (11.5-14.5)
[2022-11-01 13:19] LABS: HEMOGLOBIN A1C 5.9 % (3.8-5.6)
[2022-11-01 13:45] LABS: ALANINE AMINOTRANSFERASE 29 U/L (12-78); ALBUMIN 4.1 g/dL (3.4-5.0); ALKALINE PHOSPHATASE 103 U/L (46-116); ANION GAP 9 mmol/L (8-16); ASPARTATE AMINOTRANSFERASE 30 U/L (15-37); BILIRUBIN,TOTAL 0.4 mg/dL (0.1-1.0); CALCIUM, TOTAL 9.1 mg/dL (8.8-10.5); CARBON DIOXIDE 28 mmol/L (22-29); CHLORIDE 101 mmol/L (98-107); CHOL/HDL RATIO 3.4 (3.9-5.7); CHOLESTEROL 167 mg/dL (131-200); CREATININE 0.59 mg/dL (0.60-1.30); GLOMERULAR FILTR. RATE CALC > 60 mL/min (>60); GLUCOSE,RANDOM 90 mg/dL (70-110); HDL CHOLESTEROL 49 mg/dL (40-60); LDL CHOL (CALC.) 79 mg/dL (0-130); POTASSIUM 4.2 mmol/L (3.5-5.1); SODIUM SERUM 138 mmol/L (136-145); THYROID STIMULATING HORMONE 3.53 uIU/mL (0.36-3.74); TOTAL PROTEIN, SERUM 8.6 g/dL (6.4-8.2); TRIGLYCERIDES 193 mg/dL (15-150); UREA NITROGEN, BLOOD 7 mg/dL (7-18)
[2022-11-01 14:13] LABS: APPEARANCE,URINE CLEAR (CLEAR); BILIRUBIN,URINE NEGATIVE (NEGATIVE); GLUCOSE, URINE (UA) NEGATIVE (NEGATIVE); KETONES,URINE NEGATIVE (NEGATIVE); LEUKOCYTE ESTERASE ,URINE NEGATIVE (NEGATIVE); NITRATE,URINE NEGATIVE (NEGATIVE); OCCULT BLOOD,URINE SMALL (NEGATIVE); PROTEIN,URINE NEGATIVE (NEGATIVE); SPECIFIC GRAVITIY, URINE 1.002 (1.003-1.030); UROBILINOGEN,URINE <=1.0 mg/dL (<=1.0)
[2022-11-01 14:49] LABS: BACTERIA,URINE None Seen /HPF (None Seen); RBC,URINE None Seen /HPF (0-2); SQUAMOUS EPITHELIAL CELL,UR Few /LPF (None Seen); WBC,URINE None Seen /HPF (0-5)
== END | disposition home or self-care (01) ==
LOC: LABMN 12:38
PROVIDERS: ATTEND Internal Medicine
DX: E78.2 Mixed hyperlipidemia (principal); R73.03 Prediabetes; E03.9 Hypothyroidism, unspecified
CPT/HCPCS: 80053; 80061; 81001; 82043; 82570; 83036; 84443; 85025

== ENCOUNTER → 2023-03-07 | Outpatient (CLI) | payer OTHER ==
[2023-03-07 07:51] LABS: BASOPHILS % (AUTO) 1.1 % (0.0-2.0); EOSINOPHILS % (AUTO) 2.1 % (1.0-6.0); HEMATOCRIT 39.7 % (36-46); MEAN CORPUSCULAR HEMOGLOBIN 28.8 pg (26.0-34.0); MEAN CORPUSCULAR HGB CONC 32.7 G/dL (31.0-37.0); MEAN CORPUSCULAR VOLUME 88 fL (80-100); MONOCYTES # (AUTO) 0.5 K/uL (0.1-1.0); MONOCYTES % (AUTO) 10.2 % (2.0-9.0); NEUTROPHILS # (AUTO) 2.6 K/uL (1.8-7.7); NEUTROPHILS % (AUTO) 48.6 % (40.0-70.0); PLATELET COUNT (AUTO) 288 K/uL (150-450); RED BLOOD CELL COUNT(AUTO) 4.51 MIL/uL (4.00-5.20); RED CELL DISTRIBUTION WIDTH 13.4 % (11.5-14.5)
[2023-03-07 07:52] LABS: APPEARANCE,URINE CLEAR (CLEAR); BILIRUBIN,URINE NEGATIVE (NEGATIVE); GLUCOSE, URINE (UA) NEGATIVE (NEGATIVE); KETONES,URINE NEGATIVE (NEGATIVE); LEUKOCYTE ESTERASE ,URINE NEGATIVE (NEGATIVE); NITRATE,URINE NEGATIVE (NEGATIVE); OCCULT BLOOD,URINE SMALL (NEGATIVE); PROTEIN,URINE NEGATIVE (NEGATIVE); SPECIFIC GRAVITIY, URINE 1.003 (1.003-1.030); UROBILINOGEN,URINE <=1.0 mg/dL (<=1.0)
[2023-03-07 07:58] LABS: HEMOGLOBIN A1C 5.7 % (3.8-5.6)
[2023-03-07 08:04] LABS: CREATININE,URINE RANDOM < 5.0 mg/dL (30.0-125.0)
[2023-03-07 08:09] LABS: BACTERIA,URINE None Seen /HPF (None Seen); RBC,URINE 0-2 /HPF (0-2); WBC,URINE None Seen /HPF (0-5)
[2023-03-07 08:10] LABS: SQUAMOUS EPITHELIAL CELL,UR Rare /LPF (None Seen)
[2023-03-07 08:13] LABS: ALANINE AMINOTRANSFERASE 24 U/L (12-78); ALBUMIN 3.9 g/dL (3.4-5.0); ALKALINE PHOSPHATASE 94 U/L (46-116); ANION GAP 11 mmol/L (8-16); ASPARTATE AMINOTRANSFERASE 25 U/L (15-37); BILIRUBIN,TOTAL 0.5 mg/dL (0.1-1.0); CALCIUM, TOTAL 9.2 mg/dL (8.8-10.5); CARBON DIOXIDE 25 mmol/L (22-29); CHLORIDE 100 mmol/L (98-107); CHOL/HDL RATIO 3.4 (3.9-5.7); CHOLESTEROL 168 mg/dL (131-200); CREATININE 0.55 mg/dL (0.60-1.30); GLOMERULAR FILTR. RATE CALC > 60 mL/min (>60); GLUCOSE,RANDOM 100 mg/dL (70-110); HDL CHOLESTEROL 50 mg/dL (40-60); LDL CHOL (CALC.) 95 mg/dL (0-130); POTASSIUM 3.9 mmol/L (3.5-5.1); SODIUM SERUM 136 mmol/L (136-145); THYROID STIMULATING HORMONE 6.03 uIU/mL (0.36-3.74); TOTAL PROTEIN, SERUM 8.3 g/dL (6.4-8.2); TRIGLYCERIDES 117 mg/dL (15-150)
== END | disposition home or self-care (01) ==
LOC: LABMN 07:16
PROVIDERS: ATTEND Internal Medicine
DX: Z12.11 Encounter for screening for malignant neoplasm of colon (principal); R73.03 Prediabetes; E78.2 Mixed hyperlipidemia; E03.9 Hypothyroidism, unspecified
CPT/HCPCS: 80053; 80061; 81001; 82043; 82570; 83036; 84443; 85025

== ENCOUNTER → 2023-03-18 | Outpatient (CLI) | payer OTHER ==
[~2023-03-18] MED LIST changes: +IOHEXOL 350 MG/ML 100 ML VIAL ONE; +SODIUM CHLORIDE 0.9% 100 ML ONE
== END | disposition home or self-care (01) ==
LOC: RADMN 09:43
PROVIDERS: ATTEND Urology
DX: K76.0 Fatty (change of) liver, not elsewhere classified (principal); R31.21 Asymptomatic microscopic hematuria; R16.0 Hepatomegaly, not elsewhere classified; I87.8 Other specified disorders of veins
CPT/HCPCS: 74178; Q9967; J7050

== ENCOUNTER → 2023-03-21 | Outpatient (CLI) | payer OTHER ==
[~2023-03-21] MED LIST changes: -IOHEXOL 350 MG/ML 100 ML VIAL ONE; -SODIUM CHLORIDE 0.9% 100 ML ONE
== END | disposition home or self-care (01) ==
LOC: LABMN 11:43
PROVIDERS: ATTEND Internal Medicine
DX: Z12.11 Encounter for screening for malignant neoplasm of colon (principal)
CPT/HCPCS: 82274

== ENCOUNTER → 2023-04-08 | Outpatient (CLI) | payer OTHER ==
[2023-04-08 13:57] LABS: FREE T4 (FREE THYROXINE) 1.09 ng/dL (0.76-1.46); THYROID STIMULATING HORMONE 2.52 uIU/mL (0.36-3.74)
== END | disposition home or self-care (01) ==
LOC: LABMN 12:45
PROVIDERS: ATTEND Internal Medicine
DX: E03.9 Hypothyroidism, unspecified (principal)
CPT/HCPCS: 84439; 84443; 84481

== ENCOUNTER → 2023-05-21 | Outpatient (CLI) | payer OTHER ==
[2023-05-21 14:39] LABS: URIC ACID 5.2 mg/dL (2.6-7.2)
[2023-05-21 14:46] LABS: CREATININE,URINE RANDOM 7.6 mg/dL (30.0-125.0); PROTEIN,URINE RANDOM < 6 mg/dL (0-11.9)
[2023-05-21 14:51] LABS: C-REACTIVE PROTEIN QUANT 0.23 mg/dL (0.00-0.30)
[2023-05-21 15:03] LABS: VITAMIN D,TOTAL (25-0H) 39 ng/mL (30-100)
[2023-05-21 15:14] LABS: HEPATITIS B SURFACE AG (II) NEGATIVE (NEGATIVE)
[2023-05-22 06:07] LABS: THYROID PEROXIDASE (TPO) AB 113 IU/mL (0-34)
[2023-05-22 07:07] LABS: COMPLEMENT C3 143 mg/dL (82-167); COMPLEMENT C4 26 mg/dL (12-38); IMMUNOGLOBULIN A 390 mg/dL (87-352); IMMUNOGLOBULIN G 1852 mg/dL (586-1602); IMMUNOGLOBULIN M 81 mg/dL (26-217); RHEUMATOID FACTOR, REF LAB <10.0 IU/mL (<14.0)
[2023-05-22 10:07] LABS: THYROGLOBULIN ANTIBODY 3.5 IU/mL (0.0-0.9)
[2023-05-22 18:06] LABS: ANTI-SCLERODERMA 70 <0.2 AI (0.0-0.9)
[2023-05-23 06:06] LABS: QUANTIFERON+, Nil Value 0.04 IU/mL; QUANTIFERON+,Mitogen Value 7.07 IU/mL; QUANTIFERON+,TB1 Antigen Value 0.12 IU/mL; QUANTIFERON+,TB2 Antigen Value 0.06 IU/mL; QUANTIFERON, TB GOLD PLUS Negative (Negative)
[2023-05-23 11:06] LABS: ANA,IFA (TITER & PATTERN) Negative
== END | disposition home or self-care (01) ==
LOC: MSR 12:59
PROVIDERS: ATTEND Internal Medicine Rheumatology
DX: R76.9 Abnormal immunological finding in serum, unspecified (principal); R73.03 Prediabetes; E55.9 Vitamin D deficiency, unspecified; M35.00 Sjogren syndrome, unspecified
CPT/HCPCS: 71046; 82306; 82570; 82784; 82785; 84156; 84550; 85651; 86038; 86140; 86160; 86200; 86225; 86235; 86256; 86376; 86431; 86480; 86800; 87340; 36415-L1; 36415-TC

== ENCOUNTER → 2023-06-02 | Outpatient (CLI) | payer OTHER ==
[~2023-06-02] VITALS: Ht 152.4 cm; Wt 53.5 kg
[2023-06-02 14:40] VITALS: BP 109/59; PULSE 60; RESP 18; TEMP 98.6; O2SAT 98
== END | disposition home or self-care (01) ==
LOC: SRCNTR 14:15
PROVIDERS: ATTEND Internal Medicine
DX: I20.9 Angina pectoris, unspecified (principal); R07.9 Chest pain, unspecified; R06.00 Dyspnea, unspecified; E78.5 Hyperlipidemia, unspecified; E03.9 Hypothyroidism, unspecified
CPT/HCPCS: 93005; G0463

== ENCOUNTER → 2023-06-06 | Outpatient (CLI) | payer OTHER ==
[~2023-06-06] MED LIST changes: -PILOC5 PO
== END | disposition home or self-care (01) ==
LOC: RADPV 09:11
PROVIDERS: ATTEND Internal Medicine
DX: I08.1 Rheumatic disorders of both mitral and tricuspid valves (principal); R07.9 Chest pain, unspecified; R06.00 Dyspnea, unspecified
CPT/HCPCS: 93306

== ENCOUNTER 2023-07-03 14:20 | Inpatient (IN) | payer OTHER ==
[~2023-07-03 14:20] MED LIST changes: -ASPI81TA87 PO; -ATOR10TA PO; -METOPROLOL TARTRATE 5 MG/5 ML VIAL ONE; -MORPHINE SULFATE 2 MG/ML SYRINGE ONE; -NITROGLYCERIN 400 MCG/SUBLINGUAL SPRAY 4.9 GM BOTTLE SL ONE; -REGADENOSON 0.4 MG/5 ML PF SYRINGE IVP ONE; -SESTAMIBI TC99M/UD ISOTOPE 1 EA INJ INJ ONE
[2023-07-03 15:00] VITALS: BP 136/86; PULSE 59; RESP 18; TEMP 98.2
[2023-07-03] MEDS ORDERED: ACETAMINOPHEN 325 MG TABLET PO PRN (15:45)
[2023-07-03] MEDS ORDERED: 0.9% SODIUM CHLORIDE 10 ML SYRINGE IVP PRN (15:45)
[2023-07-03] MEDS ORDERED: IPRATROPIUM BROMIDE 0.5 MG/2.5 ML NEB SOLUTION NEB PRN (15:45)
[2023-07-03] MEDS ORDERED: DOCUSATE SODIUM 100 MG CAPSULE PO PRN (15:45)
[2023-07-03] MEDS ORDERED: NITROGLYCERIN 0.4 MG SUBLINGUAL TABLET #25 SL PRN (15:45)
[2023-07-03] MEDS ORDERED: ALBUTEROL SULFATE 2.5 MG/0.5 ML NEB SOLUTION NEB PRN (15:45)
[2023-07-03] MEDS ORDERED: ONDANSETRON HCL 4 MG/2 ML VIAL IVP PRN (15:45)
[2023-07-03] MEDS ORDERED: BISACODYL 10 MG RECTAL RECTAL SUPPOSITORY PR PRN (15:45)
[2023-07-03] MEDS ORDERED: MELATONIN 5 MG TABLET PO PRN (16:00)
[2023-07-03] MEDS ORDERED: INFLUENZA VIRUS VACCINE QVS 2023-24 (6MO+)/PF 60 MCG/0.5 ML SYRINGE IM. ONE (18:30)
[2023-07-03 18:48] LABS: TROPONIN I-HIGH SENSITIVITY 6 ng/L (<51)
[2023-07-03 19:51] VITALS: BP 128/78; PULSE 58; RESP 18; TEMP 98.5
[2023-07-03] MEDS ORDERED: ATORVASTATIN CALCIUM 10 MG TABLET PO SCH (21:00)
[2023-07-04 00:17] VITALS: BP 100/61; PULSE 54; RESP 18; TEMP 97.8
[2023-07-04 05:12] VITALS: BP 100/57; PULSE 50; RESP 18; TEMP 97.9
[2023-07-04 06:25] LABS: BASOPHILS % (AUTO) 2.6 % (0.0-2.0); EOSINOPHILS % (AUTO) 2.2 % (1.0-6.0); HEMATOCRIT 36.7 % (36-46); HEMOGLOBIN 12.5 g/dL (12.0-16.0); LYMPHOCYTES # (AUTO) 1.9 K/uL (1.0-4.8); LYMPHOCYTES % (AUTO) 37.1 % (22.0-44.0); MEAN CORPUSCULAR HEMOGLOBIN 29.7 pg (26.0-34.0); MEAN CORPUSCULAR HGB CONC 34.1 G/dL (31.0-37.0); MEAN CORPUSCULAR VOLUME 87 fL (80-100); MONOCYTES # (AUTO) 0.5 K/uL (0.1-1.0); MONOCYTES % (AUTO) 10.6 % (2.0-9.0); NEUTROPHILS # (AUTO) 2.4 K/uL (1.8-7.7); NEUTROPHILS % (AUTO) 47.5 % (40.0-70.0); PLATELET COUNT (AUTO) 304 K/uL (150-450); RED CELL DISTRIBUTION WIDTH 12.7 % (11.5-14.5)
[2023-07-04] MEDS ORDERED: LEVOTHYROXINE SODIUM 88 MCG TABLET PO SCH (06:30)
[2023-07-04 06:41] LABS: ALANINE AMINOTRANSFERASE 24 U/L (12-78); ALBUMIN 3.4 g/dL (3.4-5.0); ALKALINE PHOSPHATASE 96 U/L (46-116); ANION GAP 8 mmol/L (8-16); ASPARTATE AMINOTRANSFERASE 22 U/L (15-37); BILIRUBIN,TOTAL 0.4 mg/dL (0.1-1.0); CARBON DIOXIDE 27 mmol/L (22-29); CHLORIDE 104 mmol/L (98-107); CHOL/HDL RATIO 3.9 (3.9-5.7); CHOLESTEROL 175 mg/dL (131-200); CREATININE 0.64 mg/dL (0.60-1.30); GLOMERULAR FILTR. RATE CALC > 60 mL/min (>60); GLUCOSE,RANDOM 109 mg/dL (70-110); HDL CHOLESTEROL 45 mg/dL (40-60); LDL CHOL (CALC.) 87 mg/dL (0-130); SODIUM SERUM 139 mmol/L (136-145); TOTAL PROTEIN, SERUM 8.1 g/dL (6.4-8.2); TRIGLYCERIDES 216 mg/dL (15-150); TROPONIN I-HIGH SENSITIVITY 6 ng/L (<51); UREA NITROGEN, BLOOD 14 mg/dL (7-18)
[2023-07-04 07:35] VITALS: BP 101/58; PULSE 56; RESP 18; TEMP 98.3
[2023-07-04] MEDS ORDERED: ASPIRIN 81 MG CHEWABLE TABLET PO SCH (09:00)
[2023-07-04] MEDS ORDERED: LEVO88TA4 PO (11:46)
[2023-07-04] MEDS ORDERED: LEVO75 PO (11:46)
[2023-07-04 12:05] VITALS: BP 101/64; PULSE 53; RESP 18; TEMP 98.3
[2023-07-04] MEDS ORDERED: ATOR10TA PO (12:08)
[2023-07-04] MEDS ORDERED: ASPI81TA87 PO (12:09)
== END 2023-07-04 13:00 | disposition home or self-care (01) | DRG 313 ==
LOC: 5S 14:20
PROVIDERS: ADMIT Internal Medicine; ATTEND Internal Medicine
DX: R07.89 Other chest pain (principal); M35.00 Sjogren syndrome, unspecified; E78.00 Pure hypercholesterolemia, unspecified; E03.9 Hypothyroidism, unspecified; F10.90 Alcohol use, unspecified, uncomplicated; Z79.899 Other long term (current) drug therapy
CPT/HCPCS: 80053; 80061; 84484; 85025; Q9967

== ENCOUNTER → 2023-07-03 | Outpatient (CLI) | payer OTHER ==
[~2023-07-03] MED LIST changes: +ASPI81TA87 PO; +ATOR10TA PO; +METOPROLOL TARTRATE 5 MG/5 ML VIAL ONE; +MORPHINE SULFATE 2 MG/ML SYRINGE ONE; +NITROGLYCERIN 400 MCG/SUBLINGUAL SPRAY 4.9 GM BOTTLE SL ONE; +REGADENOSON 0.4 MG/5 ML PF SYRINGE IVP ONE; +SESTAMIBI TC99M/UD ISOTOPE 1 EA INJ INJ ONE
== END | disposition home or self-care (01) ==
LOC: MSR 08:54
PROVIDERS: ATTEND Internal Medicine
DX: R94.31 Abnormal electrocardiogram [ECG] [EKG] (principal); R07.9 Chest pain, unspecified
CPT/HCPCS: 78452; 93005; A9500; J2785; G0238; J2270; J3490

== ENCOUNTER → 2023-07-07 | Outpatient (CLI) | payer OTHER ==
[~2023-07-07] MED LIST changes: +ASPI81TA87 PO; +ATOR10TA PO
== END | disposition home or self-care (01) ==
LOC: RADMN 12:51
PROVIDERS: ATTEND Internal Medicine Rheumatology
DX: R16.0 Hepatomegaly, not elsewhere classified (principal); J84.9 Interstitial pulmonary disease, unspecified; R05.9 Cough, unspecified
CPT/HCPCS: 71250

== ENCOUNTER → 2023-07-08 | Outpatient (CLI) | payer OTHER | END | disposition home or self-care (01) | LOC: RADMN 12:47 | PROVIDERS: ATTEND Internal Medicine Rheumatology | DX: M50.11 Cervical disc disorder with radiculopathy, high cervical region (principal); M50.121 Cervical disc disorder at C4-C5 level with radiculopathy; M50.122 Cervical disc disorder at C5-C6 level with radiculopathy; M47.22 Other spondylosis with radiculopathy, cervical region; M48.02 Spinal stenosis, cervical region; M25.78 Osteophyte, vertebrae | CPT/HCPCS: 72141 ==

== ENCOUNTER → 2023-07-15 | Outpatient (CLI) | payer OTHER | END | disposition home or self-care (01) | LOC: SRCNTR 12:06 | PROVIDERS: ATTEND Internal Medicine | DX: E03.9 Hypothyroidism, unspecified (principal); E78.5 Hyperlipidemia, unspecified; Z79.82 Long term (current) use of aspirin; Z79.899 Other long term (current) drug therapy | CPT/HCPCS: Q3014 ==

== ENCOUNTER → 2023-07-25 | Outpatient (CLI) | payer OTHER | END | disposition home or self-care (01) | LOC: LABMN 11:35 → EEVIPCON 11:35 | PROVIDERS: ATTEND Internal Medicine Pulmonary Disease | DX: J47.9 Bronchiectasis, uncomplicated (principal) | CPT/HCPCS: 86635 ==

== ENCOUNTER → 2023-07-25 | Outpatient (CLI) | payer OTHER ==
[~2023-07-25] VITALS: Ht 152.4 cm; Wt 55.0 kg
[2023-07-25 10:27] VITALS: BP 119/75; PULSE 57; RESP 21; TEMP 98.2; O2SAT 97
== END | disposition home or self-care (01) ==
LOC: SRCNTR 10:04
PROVIDERS: ATTEND Internal Medicine Pulmonary Disease
DX: J47.1 Bronchiectasis with (acute) exacerbation (principal); M35.9 Systemic involvement of connective tissue, unspecified; E78.5 Hyperlipidemia, unspecified; E03.9 Hypothyroidism, unspecified
CPT/HCPCS: G0463; Z7500

== ENCOUNTER → 2023-10-02 | Outpatient (CLI) | payer OTHER ==
[~2023-10-02] VITALS: Ht 152.4 cm; Wt 54.0 kg
[2023-10-02 10:33] VITALS: BP 125/73; PULSE 54; RESP 18; TEMP 98.2; O2SAT 97
== END | disposition home or self-care (01) ==
LOC: SRCNTR 10:15
PROVIDERS: ATTEND Internal Medicine Pulmonary Disease
DX: J47.1 Bronchiectasis with (acute) exacerbation (principal); E78.5 Hyperlipidemia, unspecified; E03.9 Hypothyroidism, unspecified; D89.89 Other specified disorders involving the immune mechanism, not elsewhere classified
CPT/HCPCS: G0463

== ENCOUNTER → 2023-10-07 | Outpatient (CLI) | payer OTHER ==
[~2023-10-07] MED LIST changes: -OMEG-53 PO
[2023-10-09 10:07] LABS: QUANTIFERON+, Nil Value 0.01 IU/mL; QUANTIFERON+,Mitogen Value 1.79 IU/mL; QUANTIFERON+,TB1 Antigen Value 0.01 IU/mL; QUANTIFERON+,TB2 Antigen Value 0.01 IU/mL; QUANTIFERON, TB GOLD PLUS Negative (Negative)
== END | disposition home or self-care (01) ==
LOC: LABMN 12:25
PROVIDERS: ATTEND Internal Medicine Pulmonary Disease
DX: J47.9 Bronchiectasis, uncomplicated (principal)
CPT/HCPCS: 86480

== ENCOUNTER → 2023-10-08 | Outpatient (CLI) | payer OTHER | END | disposition home or self-care (01) | LOC: RADMN 11:42 | PROVIDERS: ATTEND Internal Medicine | DX: M47.26 Other spondylosis with radiculopathy, lumbar region (principal); M48.061 Spinal stenosis, lumbar region without neurogenic claudication | CPT/HCPCS: 72100; 72148; 72220 ==

== ENCOUNTER → 2023-12-16 | Outpatient (CLI) | payer OTHER | END | disposition home or self-care (01) | LOC: RADMN 14:19 | PROVIDERS: ATTEND Internal Medicine Pulmonary Disease | DX: J47.9 Bronchiectasis, uncomplicated (principal); I70.0 Atherosclerosis of aorta; K44.9 Diaphragmatic hernia without obstruction or gangrene; J98.4 Other disorders of lung; N28.1 Cyst of kidney, acquired; M47.814 Spondylosis without myelopathy or radiculopathy, thoracic region | CPT/HCPCS: 71250 ==

== ENCOUNTER → 2023-12-23 | Outpatient (CLI) | payer OTHER | END | disposition home or self-care (01) | LOC: SRCNTR 11:31 | PROVIDERS: ATTEND Internal Medicine Pulmonary Disease | DX: J47.1 Bronchiectasis with (acute) exacerbation (principal); E78.5 Hyperlipidemia, unspecified; E03.9 Hypothyroidism, unspecified; D89.89 Other specified disorders involving the immune mechanism, not elsewhere classified; Z79.82 Long term (current) use of aspirin; Z79.899 Other long term (current) drug therapy | CPT/HCPCS: Q3014 ==

== ENCOUNTER → 2024-02-11 | Outpatient (CLI) | payer OTHER ==
[2024-02-11 10:54] LABS: APPEARANCE,URINE CLEAR (CLEAR); BILIRUBIN,URINE NEGATIVE (NEGATIVE); COLOR,URINE COLORLESS (YELLOW); GLUCOSE, URINE (UA) NEGATIVE (NEGATIVE); KETONES,URINE NEGATIVE (NEGATIVE); LEUKOCYTE ESTERASE ,URINE NEGATIVE (NEGATIVE); NITRATE,URINE NEGATIVE (NEGATIVE); OCCULT BLOOD,URINE SMALL (NEGATIVE); PROTEIN,URINE NEGATIVE (NEGATIVE); SPECIFIC GRAVITIY, URINE 1.003 (1.003-1.030); UROBILINOGEN,URINE <=1.0 mg/dL (<=1.0)
[2024-02-11 11:02] LABS: BASOPHILS % (AUTO) 1.3 % (0.0-2.0); EOSINOPHILS % (AUTO) 1.3 % (1.0-6.0); HEMATOCRIT 39.8 % (36-46); HEMOGLOBIN 13.3 g/dL (12.0-16.0); LYMPHOCYTES # (AUTO) 2.3 K/uL (1.0-4.8); LYMPHOCYTES % (AUTO) 38.5 % (22.0-44.0); MEAN CORPUSCULAR HEMOGLOBIN 29.2 pg (26.0-34.0); MEAN CORPUSCULAR HGB CONC 33.5 G/dL (31.0-37.0); MEAN CORPUSCULAR VOLUME 87 fL (80-100); MONOCYTES # (AUTO) 0.4 K/uL (0.1-1.0); MONOCYTES % (AUTO) 6.5 % (2.0-9.0); NEUTROPHILS # (AUTO) 3.2 K/uL (1.8-7.7); NEUTROPHILS % (AUTO) 52.4 % (40.0-70.0); PLATELET COUNT (AUTO) 315 K/uL (150-450); RED BLOOD CELL COUNT(AUTO) 4.57 MIL/uL (4.00-5.20); RED CELL DISTRIBUTION WIDTH 13.8 % (11.5-14.5)
[2024-02-11 11:11] LABS: BACTERIA,URINE None Seen /HPF (None Seen); RBC,URINE 0-2 /HPF (0-2); WBC,URINE None Seen /HPF (0-5)
[2024-02-11 11:46] LABS: ALANINE AMINOTRANSFERASE 27 U/L (12-78); ALBUMIN 3.8 g/dL (3.4-5.0); ALKALINE PHOSPHATASE 67 U/L (46-116); ANION GAP 7 mmol/L (8-16); ASPARTATE AMINOTRANSFERASE 26 U/L (15-37); BILIRUBIN,TOTAL 0.5 mg/dL (0.1-1.0); CALCIUM, TOTAL 8.8 mg/dL (8.8-10.5); CARBON DIOXIDE 30 mmol/L (22-29); CHLORIDE 101 mmol/L (98-107); CHOL/HDL RATIO 3.1 (3.9-5.7); CHOLESTEROL 175 mg/dL (131-200); CREATININE 0.52 mg/dL (0.60-1.30); FREE T4 (FREE THYROXINE) 0.97 ng/dL (0.76-1.46); GLOMERULAR FILTR. RATE CALC > 60 mL/min (>60); GLUCOSE,RANDOM 86 mg/dL (70-110); HDL CHOLESTEROL 56 mg/dL (40-60); LDL CHOL (CALC.) 90 mg/dL (0-130); POTASSIUM 3.7 mmol/L (3.5-5.1); SODIUM SERUM 138 mmol/L (136-145); THYROID STIMULATING HORMONE 3.42 uIU/mL (0.36-3.74); TOTAL PROTEIN, SERUM 8.7 g/dL (6.4-8.2); TRIGLYCERIDES 143 mg/dL (15-150); UREA NITROGEN, BLOOD 11 mg/dL (7-18)
== END | disposition home or self-care (01) ==
LOC: LABMN 09:04
PROVIDERS: ATTEND Internal Medicine
DX: E03.9 Hypothyroidism, unspecified (principal); E78.2 Mixed hyperlipidemia; R73.03 Prediabetes; E55.9 Vitamin D deficiency, unspecified
CPT/HCPCS: 80053; 80061; 81001; 82306; 83036; 84481; 85025

== ENCOUNTER 2024-05-04 12:03 | Emergency (ER) | payer OTHER ==
[~2024-05-04] VITALS: Ht 152.4 cm; Wt 61.4 kg
[2024-05-04 12:20] VITALS: BP 162/74; PULSE 58; RESP 18; TEMP 97.7; O2SAT 100
[2024-05-04 12:52] LABS: BASOPHILS % (AUTO) 1.5 % (0.0-2.0); EOSINOPHILS % (AUTO) 1.6 % (1.0-6.0); HEMATOCRIT 40.4 % (36-46); HEMOGLOBIN 13.5 g/dL (12.0-16.0); LYMPHOCYTES # (AUTO) 2.3 K/uL (1.0-4.8); LYMPHOCYTES % (AUTO) 45.3 % (22.0-44.0); MEAN CORPUSCULAR HEMOGLOBIN 29.7 pg (26.0-34.0); MEAN CORPUSCULAR HGB CONC 33.4 G/dL (31.0-37.0); MEAN CORPUSCULAR VOLUME 89 fL (80-100); MONOCYTES # (AUTO) 0.5 K/uL (0.1-1.0); MONOCYTES % (AUTO) 9.8 % (2.0-9.0); NEUTROPHILS # (AUTO) 2.1 K/uL (1.8-7.7); NEUTROPHILS % (AUTO) 41.8 % (40.0-70.0); PLATELET COUNT (AUTO) 285 K/uL (150-450); RED BLOOD CELL COUNT(AUTO) 4.55 MIL/uL (4.00-5.20); RED CELL DISTRIBUTION WIDTH 13.3 % (11.5-14.5); WHITE BLOOD COUNT (AUTO) 5.1 K/uL (4.5-11.0)
[2024-05-04 12:59] LABS: ANION GAP 11 mmol/L (8-16); CALCIUM, TOTAL 8.9 mg/dL (8.8-10.5); CARBON DIOXIDE 26 mmol/L (22-29); CHLORIDE 102 mmol/L (98-107); CREATININE 0.68 mg/dL (0.60-1.30); GLOMERULAR FILTR. RATE CALC > 60 mL/min (>60); GLUCOSE,RANDOM 98 mg/dL (70-110); POTASSIUM 3.8 mmol/L (3.5-5.1); SODIUM SERUM 139 mmol/L (136-145); UREA NITROGEN, BLOOD 11 mg/dL (7-18)
[2024-05-04 13:09] LABS: TROPONIN I-HIGH SENSITIVITY 4 ng/L (<51)
[2024-05-04] MEDS ORDERED: ACET-66 PO (13:39)
[2024-05-04] MEDS ORDERED: OMEP20 PO (13:39)
[2024-05-04 13:41] LABS: ALANINE AMINOTRANSFERASE 23 U/L (12-78); ALBUMIN 3.9 g/dL (3.4-5.0); ALKALINE PHOSPHATASE 73 U/L (46-116); ASPARTATE AMINOTRANSFERASE 27 U/L (15-37); BILIRUBIN,TOTAL 0.4 mg/dL (0.1-1.0); LIPASE 44 U/L (16-77); TOTAL PROTEIN, SERUM 8.7 g/dL (6.4-8.2)
== END 2024-05-04 13:46 | disposition home or self-care (01) ==
LOC: EMS 12:03
DX: R07.89 Other chest pain (principal); F43.9 Reaction to severe stress, unspecified; E78.00 Pure hypercholesterolemia, unspecified; E03.9 Hypothyroidism, unspecified
CPT/HCPCS: 71045; 80048; 80076; 83690; 84484; 85025; 93005; 93306; 99285; 36415-L1; 36415-TC

== ENCOUNTER → 2024-09-22 | Outpatient (CLI) | payer OTHER ==
[~2024-09-22] MED LIST changes: +ACET-66 PO; +OMEP20 PO
== END | disposition home or self-care (01) ==
LOC: SRCNTR 09:57
PROVIDERS: ATTEND Internal Medicine
DX: E78.5 Hyperlipidemia, unspecified (principal); E03.9 Hypothyroidism, unspecified; Z65.8 Other specified problems related to psychosocial circumstances; Z79.82 Long term (current) use of aspirin; Z79.899 Other long term (current) drug therapy
CPT/HCPCS: Q3014

== ENCOUNTER → 2024-10-25 | Emergency (ER) | payer OTHER ==
[~2024-10-25] VITALS: Ht 152.4 cm; Wt 52.3 kg
[~2024-10-25] MED LIST changes: +BENZ-227 PO; +DIPH50CA37 PO; +GUAIFDM PO; +OMEP-148 PO; -OMEP20 PO
[2024-10-25 11:52] VITALS: BP 148/77; PULSE 74; RESP 18; TEMP 99.3; O2SAT 99
[2024-10-25 12:04] LABS: COVID AG,FIA SOURCE NASAL SWAB
[2024-10-25 12:28] LABS: SARS-COV2 (COVID) ANTIGEN,FIA Negative (Negative)
[2024-10-25 12:43] LABS: INFLUENZA TYPE A NEGATIVE FOR TYPE A (NEGATIVE); INFLUENZA TYPE B NEGATIVE FOR TYPE B (NEGATIVE)
== END | disposition home or self-care (01) ==
LOC: EMS 11:23
DX: J06.9 Acute upper respiratory infection, unspecified (principal); E03.9 Hypothyroidism, unspecified; E78.00 Pure hypercholesterolemia, unspecified; Z79.82 Long term (current) use of aspirin; Z79.899 Other long term (current) drug therapy; Z20.822 Contact with and (suspected) exposure to COVID-19
CPT/HCPCS: 87804; 99283

== ENCOUNTER 2024-12-22 07:40 | Day surgery (SDC) | payer OTHER ==
[~2024-12-22] VITALS: Ht 152.4 cm; Wt 51.8 kg
[~2024-12-22 07:40] MED LIST changes: +PROPOFOL 1% 20 ML VIAL IVP ONE; +SODIUM CHLORIDE 0.9% 1,000 ML ONE
[2024-12-22] MEDS: SODIUM CHLORIDE 0.9% 1,000 ML IV ONE (08:32)
[2024-12-22] MEDS ORDERED: OXYGEN THERAPY IH SCH ×2 (10:00→20:00)
== END 2024-12-22 11:30 | disposition home or self-care (01) ==
LOC: SURGERY 07:40
PROVIDERS: ATTEND Specialist
DX: K21.00 Gastro-esophageal reflux disease with esophagitis, without bleeding (principal); K44.9 Diaphragmatic hernia without obstruction or gangrene; E03.9 Hypothyroidism, unspecified; M35.00 Sjogren syndrome, unspecified
CPT/HCPCS: 43239; 88305; C1769; J2704; J7030

== ENCOUNTER 2025-03-23 08:04 | Day surgery (SDC) | payer OTHER ==
[~2025-03-23] VITALS: Ht 152.4 cm; Wt 51.8 kg
[~2025-03-23 08:04] MED LIST changes: -PROPOFOL 1% 20 ML VIAL IVP ONE; +SODIUM CHLORIDE 0.9% 1,000 ML IV ONE
[2025-03-23] MEDS ORDERED: PROPOFOL 1% 20 ML VIAL IVP ONE (12:00)
[2025-03-23] MEDS ORDERED: OXYGEN THERAPY IH SCH (20:00)
== END 2025-03-23 11:00 | disposition home or self-care (01) ==
LOC: SURGERY 08:04
PROVIDERS: ATTEND Specialist
DX: Z12.11 Encounter for screening for malignant neoplasm of colon (principal); K44.9 Diaphragmatic hernia without obstruction or gangrene; F90.9 Attention-deficit hyperactivity disorder, unspecified type; K21.9 Gastro-esophageal reflux disease without esophagitis; Z72.89 Other problems related to lifestyle; Z98.890 Other specified postprocedural states; Z91.041 Radiographic dye allergy status
CPT/HCPCS: 45378; 93005; J2704; J7030